=== PATIENT | female | born 1980 | race Caucasian/White ===

== ENCOUNTER 2017-12-19 15:25 | Emergency (ER) | payer MEDICAID ==
[~2017-12-19] VITALS: Ht 170.2 cm; Wt 54.0 kg
[~2017-12-19 15:25] MED LIST: ALBU18HF2 IH; ALPR-624 PO; LORA0.5T PO; TRAM50TA2 PO; ZOLP5TAB8 PO; flexeril PO; no home meds
[2017-12-19] MEDS ORDERED: PRED20TA PO (15:58)
[2017-12-19 16:14] VITALS: BP 126/98
== END 2017-12-19 16:17 | disposition home or self-care (01) ==
LOC: ER 15:26
DX: J06.9 Acute upper respiratory infection, unspecified (principal); J45.901 Unspecified asthma with (acute) exacerbation; E03.9 Hypothyroidism, unspecified; Z86.718 Personal history of other venous thrombosis and embolism; Z85.89 Personal history of malignant neoplasm of other organs and systems; Z56.0 Unemployment, unspecified; Z88.5 Allergy status to narcotic agent; Z79.899 Other long term (current) drug therapy; Z87.442 Personal history of urinary calculi
CPT/HCPCS: 99283

== ENCOUNTER 2018-09-15 15:57 | Emergency (ER) | payer MEDICAID ==
[~2018-09-15] VITALS: Ht 170.2 cm; Wt 52.7 kg
[~2018-09-15 15:57] MED LIST changes: +ALBU8.5H8 IH
[2018-09-15 16:23] VITALS: BP 127/77
[2018-09-15] MEDS ORDERED: ipratropium/albuterol 3ml nebule NEB ONE (18:35)
== END 2018-09-15 19:49 | disposition home or self-care (01) ==
LOC: ER 15:57
DX: R06.02 Shortness of breath (principal); R07.89 Other chest pain; R06.2 Wheezing; R06.00 Dyspnea, unspecified; E03.9 Hypothyroidism, unspecified; Z98.890 Other specified postprocedural states; Z86.718 Personal history of other venous thrombosis and embolism; Z56.0 Unemployment, unspecified; Z88.5 Allergy status to narcotic agent; Z79.899 Other long term (current) drug therapy
CPT/HCPCS: 94640; 94760; 99283

== ENCOUNTER 2019-07-04 15:13 | Emergency (ER) | payer MEDICAID ==
[~2019-07-04] VITALS: Ht 170.2 cm; Wt 53.0 kg
[2019-07-04 17:08] LABS: URINE HCG NEGATIVE (NEG)
[2019-07-04 17:11] LABS: CLARITY,URINE SLIGHTLY CLOUDY (Clear); COLOR,URINE YELLOW (Yellow); GLUCOSE, URINE NEGATIVE (Neg); KETONES,URINE TRACE mg/dl (Neg); LEUKOCYTE ESTERASE ,URINE NEGATIVE (Neg); NITRITES, URINE NEGATIVE (Neg); OCCULT BLOOD,URINE NEGATIVE (Neg); PROTEIN,URINE NEGATIVE (Neg); UROBILINOGEN,URINE 0.2 E.U/dL (0.2-1.0)
[2019-07-04 17:17] LABS: UA COLLECTION TYPE CLN CATCH MIDSTREAM
[2019-07-04 17:18] LABS: EOSINOPHILS % (AUTO) 1.1 % (0-6); HEMATOCRIT 42.7 % (35.0-45.0); HEMOGLOBIN 14.1 g/dl (12.0-16.0); LYMPHOCYTES # (AUTO) 0.9 X10'3 (1.1-4.8); LYMPHOCYTES % (AUTO) 21.5 % (21-51); MEAN CORPUSCULAR HEMOGLOBIN 29.5 PG (27.0-31.0); MEAN CORPUSCULAR HGB CONC 33.1 g/dL (33.0-36.5); MEAN CORPUSCULAR VOLUME 89.2 FL (78-98); MEAN PLATELET VOLUME 9.3 FL (7.4-10.4); MONOCYTES # (AUTO) 0.5 X10'3 (0-0.9); MONOCYTES % (AUTO) 12.2 % (2-12); NEUTROPHILS # (AUTO) 2.6 X10'3 (1.8-7.7); NEUTROPHILS % (AUTO) 64.2 % (42-75); PLATELET COUNT 205 X10'3 (140-440); RED BLOOD COUNT 4.79 X10'6 (4.20-5.60); RED CELL DISTRIBUTION WIDTH 15.7 % (11.5-14.5); WHITE BLOOD COUNT 4.1 X10'3 (4.5-11.0)
[2019-07-04 17:18] LABS: BACTERIA,URINE 1+ /HPF (Neg); MUCUS STRANDS MANY /LPF (Neg); RBC,URINE NONE SEEN /HPF (0-2); SQUAMOUS EPITHELIAL CELL,UR MANY /LPF (FEW); WBC,URINE 0-4 /HPF (0-4)
[2019-07-04] MEDS ORDERED: normal saline 1000ml 1,000 ML IV ONE (17:20)
[2019-07-04] MEDS ORDERED: proCHLORperazine 10 MG/2 ml inj IV ONE (17:35)
[2019-07-04] MEDS ORDERED: diphenhydrAMINE 50 mg/ml inj IV ONE (17:35)
[2019-07-04 18:06] LABS: ALANINE AMINOTRANSFERASE 15 U/L (12-78); ALBUMIN 3.2 G/DL (3.4-5.0); ALBUMIN/GLOBULIN RATIO 1.3 (1.1-1.5); ALKALINE PHOSPHATASE 44 IU/L (46-116); ANION GAP 12 (8-16); ASPARTATE AMINO TRANSFERASE 11 U/L (10-37); BILIRUBIN,TOTAL 0.4 MG/DL (0.1-1.0); BLOOD UREA NITROGEN 11 MG/DL (7-18); BUN/CREATININE RATIO 21.6 (6.6-38.0); CALCIUM 6.5 MG/DL (8.5-10.1); CHLORIDE 112 MMOL/L (99-107); CREATININE 0.51 MG/DL (0.40-0.90); GLUCOSE 73 MG/DL (70-104); LIPASE < 50 U/L (73-393); POTASSIUM 3.2 MMOL/L (3.5-5.1); SODIUM 146 MMOL/L (135-145); TOTAL PROTEIN 5.6 G/DL (6.4-8.2); eGFR > 90 ML/MIN
[2019-07-04 18:14] VITALS: BP 124/78
[2019-07-04] MEDS ORDERED: MISO100T47 PO (19:10)
[2019-07-04] MEDS ORDERED: FAMO40TA7 PO (19:10)
== END 2019-07-04 19:26 | disposition home or self-care (01) ==
LOC: ER 15:13
DX: R10.11 Right upper quadrant pain (principal); R11.10 Vomiting, unspecified; R50.9 Fever, unspecified; J45.909 Unspecified asthma, uncomplicated; E03.9 Hypothyroidism, unspecified; Z86.718 Personal history of other venous thrombosis and embolism; F41.9 Anxiety disorder, unspecified; F31.9 Bipolar disorder, unspecified; Z98.890 Other specified postprocedural states; F17.200 Nicotine dependence, unspecified, uncomplicated; Z56.0 Unemployment, unspecified; Z87.442 Personal history of urinary calculi; Z88.6 Allergy status to analgesic agent; Z79.899 Other long term (current) drug therapy
CPT/HCPCS: 36415; 80053; 81001; 81025; 83690; 85025; 96361; 96374; 96375; 99283; J0780; J1200

== ENCOUNTER 2020-05-02 00:17 | Emergency (ER) | payer MEDICAID ==
[~2020-05-02] VITALS: Ht 170.2 cm; Wt 56.8 kg
[~2020-05-02 00:17] MED LIST changes: +FAMO40TA7 PO; +MISO100T47 PO
[2020-05-02 00:31] VITALS: BP 130/91
[2020-05-02] MEDS ORDERED: HYDROcodone/acetaminophen 5mg/325mg tablet PO ONE (00:40)
[2020-05-02] MEDS ORDERED: ondansetron 4mg rapidly disintigrating tab PO ONE (00:40)
[2020-05-02] MEDS ORDERED: ONDA4TAB6 PO (00:42)
[2020-05-02] MEDS ORDERED: CLIN150C8 PO (00:42)
[2020-05-02] MEDS ORDERED: HYDR-3965 PO (00:42)
[2020-05-02] MEDS ORDERED: CIPR7.5D TOP (00:42)
== END 2020-05-02 00:58 | disposition home or self-care (01) ==
LOC: ER 00:18
DX: H66.92 Otitis media, unspecified, left ear (principal); J45.909 Unspecified asthma, uncomplicated; E03.9 Hypothyroidism, unspecified; F41.9 Anxiety disorder, unspecified; F31.9 Bipolar disorder, unspecified; Z87.440 Personal history of urinary (tract) infections; Z86.718 Personal history of other venous thrombosis and embolism; Z85.41 Personal history of malignant neoplasm of cervix uteri; Z98.890 Other specified postprocedural states; Z56.0 Unemployment, unspecified; Z88.2 Allergy status to sulfonamides; Z88.1 Allergy status to other antibiotic agents; Z88.8 Allergy status to other drugs, medicaments and biological substances; Z79.2 Long term (current) use of antibiotics; Z79.899 Other long term (current) drug therapy
CPT/HCPCS: 99283

== ENCOUNTER 2020-05-31 01:20 | Emergency (ER) | payer MEDICAID ==
[~2020-05-31] VITALS: Ht 170.2 cm; Wt 56.8 kg
[~2020-05-31 01:20] MED LIST changes: +CIPR7.5D TOP; +CLIN150C8 PO; +HYDR-3965 PO; +ONDA4TAB6 PO
[2020-05-31] MEDS ORDERED: bupivacaine 0.25%/epinephrine 1:200,000 inj (contains preserv. MDV) IJ ONE (01:35)
[2020-05-31] MEDS ORDERED: clindamycin 150mg capsule PO ONE (01:55)
[2020-05-31] MEDS ORDERED: CLIN150C8 PO (02:16)
[2020-05-31 02:57] VITALS: BP 112/84
== END 2020-05-31 02:40 | disposition home or self-care (01) ==
LOC: ER 01:21
DX: K02.9 Dental caries, unspecified (principal); J45.909 Unspecified asthma, uncomplicated; E03.9 Hypothyroidism, unspecified; F41.9 Anxiety disorder, unspecified; F31.9 Bipolar disorder, unspecified; F17.210 Nicotine dependence, cigarettes, uncomplicated; Z87.442 Personal history of urinary calculi; Z87.440 Personal history of urinary (tract) infections; Z86.718 Personal history of other venous thrombosis and embolism; Z85.41 Personal history of malignant neoplasm of cervix uteri; Z98.890 Other specified postprocedural states; Z56.0 Unemployment, unspecified; Z88.2 Allergy status to sulfonamides; Z88.1 Allergy status to other antibiotic agents; Z88.5 Allergy status to narcotic agent; Z79.2 Long term (current) use of antibiotics; Z79.899 Other long term (current) drug therapy
CPT/HCPCS: 99283

== ENCOUNTER 2022-04-07 21:00 | Emergency (ER) | payer MEDICAID ==
[~2022-04-07] VITALS: Ht 170.2 cm; Wt 51.8 kg
[~2022-04-07 21:00] MED LIST changes: +ALBU8.5H17 IH; -ALBU8.5H8 IH; -HYDR-3965 PO; +MISO100T42 PO; -MISO100T47 PO
[2022-04-07 21:03] VITALS: BP 147/91
[2022-04-07 22:14] LABS: CLARITY,URINE SLIGHTLY CLOUDY (Clear); GLUCOSE, URINE NEGATIVE (Neg); KETONES,URINE TRACE mg/dl (Neg); LEUKOCYTE ESTERASE ,URINE NEGATIVE (Neg); NITRITES, URINE NEGATIVE (Neg); OCCULT BLOOD,URINE NEGATIVE (Neg); PH,URINE 6.5 (4.8-8.0); PROTEIN,URINE TRACE mg/dl (Neg)
[2022-04-07 22:21] LABS: URINE AMPHETAMINE SCREEN NEGATIVE (Neg); URINE BARBITUATE SCREEN NEGATIVE (Neg); URINE BENZODIAZEPINES SCREEN POSITIVE (Neg); URINE CANNABINOID SCREEN POSITIVE (Neg); URINE COCAINE SCREEN NEGATIVE (Neg); URINE METHADONE SCREEN NEGATIVE (Neg); URINE OPIATE SCREEN NEGATIVE (Neg); URINE PHENCYCLIDINE SCREEN NEGATIVE (Neg)
[2022-04-07 22:24] LABS: COLOR,URINE DARK YELLOW (Yellow); UA COLLECTION TYPE CLN CATCH MIDSTREAM
[2022-04-07 22:25] LABS: MUCUS STRANDS MANY /LPF (Neg); RBC,URINE 0-2 /HPF (0-2); WBC,URINE 0-4 /HPF (0-4)
[2022-04-07 22:26] LABS: BACTERIA,URINE 2+ /HPF (Neg); SQUAMOUS EPITHELIAL CELL,UR MANY /LPF (FEW)
== END 2022-04-07 22:54 | disposition home or self-care (01) ==
LOC: ER 21:00
DX: S09.90XA Unspecified injury of head, initial encounter (principal); E06.9 Thyroiditis, unspecified; F31.9 Bipolar disorder, unspecified; J45.909 Unspecified asthma, uncomplicated; Z56.0 Unemployment, unspecified; Z87.442 Personal history of urinary calculi; Z88.2 Allergy status to sulfonamides; Z88.1 Allergy status to other antibiotic agents; Z88.5 Allergy status to narcotic agent; Z79.899 Other long term (current) drug therapy; W19.XXXA Unspecified fall, initial encounter; Y93.89 Activity, other specified; Y92.89 Other specified places as the place of occurrence of the external cause; Y99.8 Other external cause status
CPT/HCPCS: 70450; 80305; 81001; 99284

== ENCOUNTER 2022-10-16 09:06 | Day surgery (SDC) | payer MEDICAID ==
[2022-10-13 15:32] LABS: BASOPHILS % (AUTO) 0.7 % (0-1); EOSINOPHILS % (AUTO) 0.9 % (0-6); LYMPHOCYTES # (AUTO) 0.8 X10'3 (1.1-4.8); LYMPHOCYTES % (AUTO) 13.5 % (21-51); MEAN CORPUSCULAR HEMOGLOBIN 33.3 PG (27.0-31.0); MEAN CORPUSCULAR HGB CONC 33.8 g/dL (33.0-36.5); MEAN CORPUSCULAR VOLUME 98.4 FL (78-98); MEAN PLATELET VOLUME 8.3 FL (7.4-10.4); MONOCYTES # (AUTO) 0.4 X10'3 (0-0.9); MONOCYTES % (AUTO) 6.4 % (2-12); NEUTROPHILS # (AUTO) 4.4 X10'3 (1.8-7.7); NEUTROPHILS % (AUTO) 78.5 % (42-75); PRE OP HEMATOCRIT 46.3 % (35.0-45.0); PRE OP HEMOGLOBIN 15.7 g/dL (12.0-16.0); PRE OP PLATELET COUNT 170 X10'3 (140-440); RED CELL DISTRIBUTION WIDTH 14.3 % (11.5-14.5)
[2022-10-13 15:48] LABS: ALBUMIN 3.8 G/DL (3.4-5.0); ALBUMIN/GLOBULIN RATIO 1.1 (1.1-1.5); ALKALINE PHOSPHATASE 61 IU/L (46-116); BLOOD UREA NITROGEN 10 MG/DL (7-18); BUN/CREATININE RATIO 11.4 (6.6-38.0); CALCIUM 8.9 MG/DL (8.5-10.1); CHLORIDE 103 MMOL/L (99-107); CREATININE 0.88 MG/DL (0.40-0.90); PRE OP ALT 23 U/L (30-65); PRE OP ANION GAP 6 (8-16); PRE OP AST 20 U/L (10-37); PRE OP BILIRUB, TOTAL 0.3 MG/DL (0.0-1.0); PRE OP GLUCOSE 93 MG/DL (70-104); PRE OP POTASSIUM 3.7 MMOL/L (3.4-5.1); PRE OP SODIUM 139 MMOL/L (135-145); TOTAL CARBON DIOXIDE 30.3 MMOL/L (24-32); TOTAL PROTEIN 7.4 G/DL (6.4-8.2); eGFR 70 ML/MIN
[2022-10-13 16:02] LABS: HCG SERUM QL NEGATIVE
[~2022-10-16] VITALS: Ht 170.2 cm; Wt 53.0 kg
[2022-10-16] VITALS (8 sets, daily range): BP systolic 80–130; BP diastolic 46–82
[~2022-10-16 09:06] MED LIST changes: -ALBU8.5H17 IH; -ALPR-624 PO; -CIPR7.5D TOP; -CLIN150C8 PO; +CLON-369 PO; -FAMO40TA7 PO; +GABA-530 PO; +LEVO75TA PO; -LORA0.5T PO; -MISO100T42 PO; -ONDA4TAB6 PO; +ONDA8TAB13 PO; -ZOLP5TAB8 PO; +albuterol 2.5 MG/3 ML nebule NEB ONE; +ceFAZolin inj. 2,000 MG in dextrose 5%-water 100 ML IV ONE; +famotidine 20mg tablet PO ONE; -flexeril PO; -no home meds; +ringers solution, lacted 1,000 ML IV SCH
[2022-10-16] MEDS ORDERED: ceFAZolin inj. 2,000 MG in dextrose 5%-water 100 ML IV ONE (09:50)
[2022-10-16] MEDS ORDERED: ringers solution, lacted 1,000 ML IV SCH (10:20)
[2022-10-16] MEDS ORDERED: proCHLORperazine 10 MG/2 ml inj IV PRN (10:20)
[2022-10-16] MEDS ORDERED: fentaNYL/PF 50MCG/1 ML 2ML syringe IV PRN ×2 (10:20)
[2022-10-16] MEDS ORDERED: ondansetron/PF 4mg/2ml inj IV PRN (10:20)
[2022-10-16] MEDS ORDERED: labetalol 20mg/4ml (5mg/ml) syringe IV PRN (10:20)
[2022-10-16] MEDS ORDERED: acetaminophen 1,000mg/100ml IV 100 ML IV PRN (10:20)
[2022-10-16] MEDS ORDERED: hydrALAZINE 20mg/ml inj. IV PRN (10:20)
[2022-10-16] MEDS ORDERED: meperidine/PF 25mg/ml syringe IV PRN ×3 (10:20)
[2022-10-16] MEDS ORDERED: ketorolac trometh. 30mg/ml inj. IV ONE (10:20)
[2022-10-16] MEDS ORDERED: BUPIVAcaine 0.25% w/Epi /PF 30ml vial ONE (13:42)
[2022-10-16] MEDS ORDERED: sevoflurane 250ml liquid IH ONE (13:52)
[2022-10-16] MEDS ORDERED: midazolam 1 mg/ML 2ml injection ONE (13:59)
[2022-10-16] MEDS ORDERED: fentaNYL /PF 50mcg/ml 5ml ampule ONE (14:01)
[2022-10-16] MEDS ORDERED: ondansetron/PF 4mg/2ml inj ONE (14:09)
[2022-10-16] MEDS ORDERED: LIDOcaine 1%/PF 5ML 10 MG/ML VIAL ONE ×2 (14:09)
[2022-10-16] MEDS ORDERED: rocuronium 10mg/ml inj IV ONE (14:09)
[2022-10-16] MEDS ORDERED: propofol inj 20 ML IV ONE (14:09)
[2022-10-16] MEDS ORDERED: dexamethasone sod phosphate 4mg/ml inj. ONE (14:09)
[2022-10-16] MEDS ORDERED: glycopyrrolate 0.2mg/ml inj ONE (14:56)
[2022-10-16] MEDS ORDERED: neostigmine methylsulfate 1 MG/ML 10ml vial ONE (14:56)
[2022-10-16] MEDS ORDERED: BUPIVAcaine HCl 0.25%/EPInephrine 1:200,000 inj. 10 ML VIAL IM ONE (15:00)
--- NOTE | 2022-10-16 15:07 | NUR ---
Received from OR via , accompanied by Anesthesiologist CASIMIRO AND OR NURSE and report given by Anesthesiolgist. PT IS DROWSY YET ABLE TO FOLLOW VERBAL COMMANDS. PT STATES PAIN AT AN 8 OUT 10; PAIN MED GIVEN. 1 LAP SITE TO UMBILICAL AREA WITH DERMABOND; CDI. 20G TO LT LOWER FA. VSS Addendum: 10/16/22 at 1546 by Veronica Isidro RN Amended: Links added.
== END 2022-10-16 16:17 | disposition home or self-care (01) ==
LOC: PAS 09:06
PROVIDERS: ATTEND Obstetrics & Gynecology
DX: N94.6 Dysmenorrhea, unspecified (principal); N80.9 Endometriosis, unspecified; Z30.2 Encounter for sterilization; N88.8 Other specified noninflammatory disorders of cervix uteri; F41.9 Anxiety disorder, unspecified; F32.A Depression, unspecified; J45.909 Unspecified asthma, uncomplicated; C53.9 Malignant neoplasm of cervix uteri, unspecified; E89.0 Postprocedural hypothyroidism; F17.200 Nicotine dependence, unspecified, uncomplicated; Z90.6 Acquired absence of other parts of urinary tract; Z98.890 Other specified postprocedural states; Z79.899 Other long term (current) drug therapy; Z79.890 Hormone replacement therapy; Z88.2 Allergy status to sulfonamides; Z88.5 Allergy status to narcotic agent
CPT/HCPCS: 36415; 58563; 58670; 80053; 82948; 84703; 85025; J0131; J0690; J1100; J2250; J2405; J2704; J2710; J3010; J3490; J7030; J7060; J7120; S0020; Z7506; Z7508; Z7512; A4355; A4618; A4649; A6258; A7000

== ENCOUNTER 2023-01-21 22:44 | Emergency (ER) | payer MEDICAID ==
[~2023-01-21] VITALS: Ht 167.6 cm; Wt 97.9 kg
[~2023-01-21 22:44] MED LIST changes: -albuterol 2.5 MG/3 ML nebule NEB ONE; -ceFAZolin inj. 2,000 MG in dextrose 5%-water 100 ML IV ONE; -famotidine 20mg tablet PO ONE; -ringers solution, lacted 1,000 ML IV SCH
[2023-01-22 00:01] LABS: CLARITY,URINE SLIGHTLY CLOUDY (Clear); COLOR,URINE YELLOW (Yellow); GLUCOSE, URINE NEGATIVE (Neg); KETONES,URINE NEGATIVE (Neg); LEUKOCYTE ESTERASE ,URINE NEGATIVE (Neg); NITRITES, URINE NEGATIVE (Neg); OCCULT BLOOD,URINE LARGE (Neg); PROTEIN,URINE NEGATIVE (Neg); UROBILINOGEN,URINE 0.2 E.U/dL (0.2-1.0)
[2023-01-22 00:03] LABS: UA COLLECTION TYPE CLN CATCH MIDSTREAM
[2023-01-22] MEDS ORDERED: acetaminophen 325mg tablet PO ONE (00:10)
[2023-01-22 00:13] LABS: BACTERIA,URINE FEW /HPF (Neg); MUCUS STRANDS FEW /LPF (Neg); SQUAMOUS EPITHELIAL CELL,UR MODERATE /LPF (FEW)
[2023-01-22] MEDS ORDERED: iohexol 300mg/ml 100ml inj. ONE (00:23)
[2023-01-22 01:07] LABS: BASOPHILS # (AUTO) 0.1 X10'3 (0-0.2); EOSINOPHILS # (AUTO) 0.1 X10'3 (0-0.9); LYMPHOCYTES # (AUTO) 1.4 X10'3 (1.1-4.8); MEAN CORPUSCULAR HGB CONC 33.4 g/dL (33.0-36.5); MONOCYTES # (AUTO) 0.7 X10'3 (0-0.9); MONOCYTES % (AUTO) 11.2 % (2-12); RED CELL DISTRIBUTION WIDTH 14.1 % (11.5-14.5)
[2023-01-22 01:09] LABS: BASOPHILS % (AUTO) 1.2 % (0-1); EOSINOPHILS % (AUTO) 1.3 % (0-6); HEMATOCRIT 46.1 % (35.0-45.0); HEMOGLOBIN 15.4 g/dl (12.0-16.0); LYMPHOCYTES % (AUTO) 22.9 % (21-51); MEAN CORPUSCULAR HEMOGLOBIN 32.5 PG (27.0-31.0); MEAN CORPUSCULAR VOLUME 97.4 FL (78-98); MEAN PLATELET VOLUME 8.4 FL (7.4-10.4); NEUTROPHILS # (AUTO) 3.8 X10'3 (1.8-7.7); NEUTROPHILS % (AUTO) 63.4 % (42-75); PLATELET COUNT 188 X10'3 (140-440); RED BLOOD COUNT 4.73 X10'6 (4.20-5.60); WHITE BLOOD COUNT 5.9 X10'3 (4.5-11.0)
[2023-01-22 01:25] LABS: ALANINE AMINOTRANSFERASE 52 U/L (12-78); ALBUMIN 4.4 G/DL (3.4-5.0); ALBUMIN/GLOBULIN RATIO 1.2 (1.1-1.5); ALKALINE PHOSPHATASE 88 IU/L (46-116); ANION GAP 5 (8-16); ASPARTATE AMINO TRANSFERASE 41 U/L (10-37); BILIRUBIN,TOTAL 0.4 MG/DL (0.1-1.0); BLOOD UREA NITROGEN 13 MG/DL (7-18); BUN/CREATININE RATIO 17.8 (10.0-20.0); CALCIUM 9.2 MG/DL (8.5-10.1); CHLORIDE 99 MMOL/L (99-107); CREATININE 0.73 MG/DL (0.40-0.90); GLUCOSE 80 MG/DL (70-104); SODIUM 135 MMOL/L (135-145); eGFR 87 ML/MIN
[2023-01-22 01:32] LABS: HIV ANTIBODY 1&2 RAPID NON-REACTIVE (Neg)
[2023-01-22 01:35] LABS: BETA HCG,QUANTITATIVE < 1.0 mIU/ml
[2023-01-22 03:55] VITALS: BP 133/92
[2023-01-23 11:07] LABS: HBSAG SCREEN Negative (Negative)
[2023-01-23 11:13] LABS: HEPATITIS C VIRUS ANTIBODY Non Reactive (Non Reactive)
== END 2023-01-22 04:00 | disposition home or self-care (01) ==
LOC: ER 22:46
DX: N83.292 Other ovarian cyst, left side (principal); N93.9 Abnormal uterine and vaginal bleeding, unspecified; I10 Essential (primary) hypertension; F31.9 Bipolar disorder, unspecified; E03.9 Hypothyroidism, unspecified; Z59.00 Homelessness unspecified
CPT/HCPCS: 36415; 74177; 76856; 80053; 81001; 84443; 84702; 85025; 86592; 86703; 86803; 87088; 87340; 87491; 87591; 93976; 99285; J3490; Q9967; 81003; 87077; 87522